=== PATIENT | male | born 1980 | race Caucasian/White ===

== ENCOUNTER 2023-08-24 15:44 | Inpatient (IN) | payer OTHER ==
[~2023-08-24 15:44] MED LIST: Iopamidol 370 76% 100 ML VIAL ONE
[2023-08-24 16:32] LABS: #Basophils 0.1 10x3/uL (0.0-0.2); #Monocytes 0.6 10x3/uL (0.0-1.1); #Neutrophils 15.2 10x3/uL (1.5-8.4); %Basophils 0.4 % (0.0-2.0); %Eosinophils 0.2 % (0.0-6.0); %Lymphocytes 5.3 % (18.0-47.0); %Monocytes 3.6 % (0.0-10.0); Hematocrit 43.2 % (38.8-50.0); Hemoglobin 13.8 g/dL (13.5-17.5); Mean Corpuscular HGB CONC 31.9 g/dL (32.0-36.0); Mean Corpuscular Hemoglobin 29.6 pg (27.0-33.0); Mean Corpuscular Volume 92.5 fl (81.2-95.1); Mean Platelet Volume 10.3 fl (7.4-10.4); Platelet Count 305 10x3/uL (150-450); RBC Distribution Width 13.3 % (11.5-14.5); Red Blood Cell (RBC) Count 4.67 10x6/uL (4.32-5.72); White Blood Cell (WBC) Count 16.9 10x3/uL (3.5-10.5)
[2023-08-24 16:38] LABS: Bilirubin Neg (Negative); Blood, Urine Negative (Negative); Clarity Clear (Clear); Glucose, Urine (Dipstick) 250 mg/dL (Negative); Ketone, Urine Negative (Negative); Leukocyte Negative (Negative); Nitrite Negative (Negative); Protein, Urine (Dipstick) 15 mg/dl (Neg-Trace); Urobilinogen Normal mg/dL (Less than 2)
[2023-08-24] MEDS ORDERED: Rocuronium Bromide 10 MG/ML (10ML VIAL) ONE (16:44)
[2023-08-24] MEDS ORDERED: KETAMINE 100 MG/ML (5ML VIAL) ONE (16:44)
[2023-08-24 16:46] LABS: Amphetamine Not Detected (NotDetected); Barbiturates Screen Not Detected (NotDetected); Benzodiazepine Screen Not Detected (NotDetected); Cocaine Metabolite Screen Not Detected (NotDetected); Methadone Not Detected (NotDetected); Methamphetamine Not Detected (NotDetected); Opiate Screen Not Detected (NotDetected); Oxycodone Screen Not Detected (NotDetected); Phencyclidine (PCP) Not Detected (NotDetected); THC/Cannabinoid Screen Not Detected (NotDetected); Tricyclic Screen Detected (NotDetected)
[2023-08-24 16:49] LABS: ALT (SGPT) 25 U/L (8-55); AST (SGOT) 22 U/L (5-34); Alkaline Phosphatase 64 U/L (40-110); Anion Gap 13 mmol/L (10-20); BUN (Urea Nitrogen) 15 mg/dL (8.9-20.6); Bilirubin, Total 0.3 mg/dL (0.2-1.2); CK (CPK) 168 U/L (30-200); Calc. Creatinine Clearance 0 mL/min (70-130); Calcium 8.5 mg/dL (7.8-10.44); Carbon Dioxide 29 mmol/L (22-29); Chloride 97 mmol/L (98-107); Estimated GFR 92; Globulin 2.6 g/dL (2.4-3.5); Glucose 282 mg/dL (70-105); Potassium 5.4 mmol/L (3.5-5.1); Protein, Total 6.6 g/dL (6.0-8.3); Sodium 134 mmol/L (136-145)
[2023-08-24 16:50] LABS: Acetaminophen Less than 10 mcg/mL (10.0-30.0); Alcohol Less than 10.0 mg/dL (Less than 10); Lipase 10 U/L (8-78); Salicylate Less than 8.0 mg/dL (15.0-30.0)
[2023-08-24] MEDS ORDERED: FENTANYL 2,000MCG/100-0.9%NACL 100 ML ONE (16:53)
[2023-08-24 16:56] LABS: Troponin I 0.011 ng/mL (< 0.028)
[2023-08-24 17:07] LABS: SARS-CoV-2 NAA Rapid Test Not Detected (NotDetected)
[2023-08-24] MEDS ORDERED: Vancomycin 1 GM VIAL ONE (17:18)
[2023-08-24] MEDS ORDERED: LevoFLOXacin 750 mg/D5W 150 ml Premix Bag ONE (17:19)
[2023-08-24] MEDS ORDERED: Cefepime 2 GM VIAL ONE (17:19)
[2023-08-24 17:23] LABS: CAUTI Indications for Culture Alt mental st,lethar; RBC/HPF 0-3 HPF (0-3); Squamous Epithelial 0-3 HPF (0-3); WBC/HPF 0-3 HPF (0-3)
[2023-08-24 17:24] LABS: Bacteria/HPF 1+ HPF (None Seen)
[2023-08-24 17:25] LABS: Urine Culture Reflex No No
[2023-08-24 17:34] LABS: Actual Bicarbonate (HCO3a) 27.5 mEq/L (22-28); Analyzer IN Cardio CS ER; Base Excess (BEa) -2.1 mEq/L (-2.0 to +3.0); CO2 Tension 69.8 mmHg (35.0-45.0); Calcium, Ionized (arterial) 1.18 mmol/L (1.12-1.30); Carboxyhemoglobin (COHb) 4.8 gm% (0.0-3.0); Hematocrit-ABG 42 % (42.0-52.0); Hemoglobin (Hb) 14.4 g/dL (14.0-18.0); O2 Tension (PaO2), arterial 75.2 mmHg (80.0-100.0); Potassium - ABG Lab 5.03 mmol/L (3.70-5.30); Puncture Site RRA; pH, Arterial 7.213 (7.35-7.45)
[2023-08-24] MEDS ORDERED: Dexamethasone 10 MG/ML VIAL ONE (17:34)
[2023-08-24] MEDS ORDERED: Magnesium 2 GM/50 ML BAG (IN WATER) ONE (17:35)
[2023-08-24] MEDS ORDERED: Ipratropium Bromide 2.5 ml Neb ONE (17:53)
[2023-08-24] MEDS ORDERED: Vecuronium 10 MG VIAL ONE (17:56)
[2023-08-24] MEDS ORDERED: Electrolyte Replacement Protocol 1 EACH IVPB ONE (18:02)
[2023-08-24] MEDS ORDERED: Ipratropium/Albuterol 3 ML NEB ONE (18:02)
[2023-08-24] MEDS ORDERED: Dextrose 50% Abboject 50 ML SYRINGE SLOW IVP PRN (18:26)
[2023-08-24] MEDS ORDERED: Dextrose 5% in Water 1,000 ML IV PRN (18:26)
[2023-08-24] MEDS ORDERED: Glucagon 1 MG/ML KIT IM PRN (18:26)
[2023-08-24] MEDS: Ipratropium/Albuterol 3 ML NEB NEB SCH (19:00)
[2023-08-24] MEDS ORDERED: Propofol 1,000 MG/100 ML VIAL IV ONE (19:23)
[2023-08-24 19:36] LABS: Actual Bicarbonate (HCO3a) 30.6 mEq/L (22-28); Analyzer IN Cardio CS ER; Base Excess (BEa) 0.9 mEq/L (-2.0 to +3.0); CO2 Tension 73.8 mmHg (35.0-45.0); Calcium, Ionized (arterial) 1.09 mmol/L (1.12-1.30); Carboxyhemoglobin (COHb) 2.8 gm% (0.0-3.0); Critical Notified By: CP.PH; Hematocrit-ABG 43 % (42.0-52.0); Hemoglobin (Hb) 14.6 g/dL (14.0-18.0); O2 Tension (PaO2), arterial 60.9 mmHg (80.0-100.0); Potassium - ABG Lab 5.54 mmol/L (3.70-5.30); Puncture Site RBA; RapidComm Collect By CP.PH; pH, Arterial 7.236 (7.35-7.45)
[2023-08-24] MEDS ORDERED: Propofol BOLUS 1,000 MG/100 ML VIAL IV PRN (20:15)
[2023-08-24] MEDS ORDERED: Fentanyl BOLUS 250 ML IVPB PRN (20:15)
[2023-08-24] MEDS: Azithromycin 500 MG in Sodium Chloride 0.9% 250 ML 250 ML IVPB SCH (20:34)
[2023-08-24] MEDS: Pantoprazole 40 MG VIAL IVP SCH (20:38)
[2023-08-24] MEDS: HumaLOG 300 UNITS/3 ML VIAL SC PRN (20:41)
[2023-08-24] MEDS ORDERED: Vancomycin HCl 500 MG in Sodium Chloride 0.9% 100 ML IVPB SCH (20:45)
[2023-08-24 21:38] LABS: Legionella Urinary Ag Negative (Negative); Strep pneumo Urine Ag NEGATIVE (NEGATIVE)
[2023-08-24] MEDS: Rocuronium Bromide 10 MG/ML (10ML VIAL) IVP SCH (23:03)
[2023-08-24] MEDS ORDERED: NOREPINEPHRINE 8 MG/250 ML-D5W 250 ML ONE (23:03)
[2023-08-24] MEDS ORDERED: Rocuronium Bromide 10 MG/ML (10ML VIAL) IVP SCH (23:05)
[2023-08-24 23:07] LABS: Actual Bicarbonate (HCO3a) 23.6 mEq/L (22-28); Analyzer IN Cardio CS ICU; Base Excess (BEa) -1.6 mEq/L (-2.0 to +3.0); CO2 Tension 41.8 mmHg (35.0-45.0); Calcium, Ionized (arterial) 1.18 mmol/L (1.12-1.30); Carboxyhemoglobin (COHb) 1.3 gm% (0.0-3.0); Critical Notified By: CP.PH; Hematocrit-ABG 41 % (42.0-52.0); Hemoglobin (Hb) 13.9 g/dL (14.0-18.0); O2 Tension (PaO2), arterial 106.4 mmHg (80.0-100.0); Potassium - ABG Lab 5.17 mmol/L (3.70-5.30); Puncture Site Arterial Line; RapidComm Collect By CP.PH
[2023-08-24] MEDS ORDERED: Acetaminophen 650 MG/20.3 ML UDCUP PER TUBE PRN (23:13)
[2023-08-24] MEDS ORDERED: NOREPINEPHRINE 8 MG/250 ML-D5W 250 ML IVPB SCH (23:15)
[2023-08-25] MEDS: methylPREDNISolone Sod Succ 40 MG VIAL IVP SCH ×4 (00:03→17:10)
[2023-08-25] MEDS: HumaLOG 300 UNITS/3 ML VIAL SC PRN ×4 (00:43→16:46)
[2023-08-25] MEDS: Rocuronium Bromide 10 MG/ML (10ML VIAL) IVP SCH (01:31)
[2023-08-25] MEDS: Ipratropium/Albuterol 3 ML NEB NEB SCH ×4 (01:35→19:50)
[2023-08-25] MEDS: Vancomycin 1.5 GRAM/300 ML BAG 1.5 GM in Premix 1 BAG IVPB SCH ×3 (02:59→17:50)
[2023-08-25] MEDS: FENTANYL 2,000MCG/100-0.9%NACL 100 ML IVPB SCH ×2 (03:20→16:09)
[2023-08-25] MEDS: Propofol 1,000 MG/100 ML VIAL IV PRN ×4 (03:20→22:34)
[2023-08-25 04:25] LABS: ALT (SGPT) 22 U/L (8-55); AST (SGOT) 16 U/L (5-34); Albumin 3.7 g/dL (3.5-5.0); Alkaline Phosphatase 57 U/L (40-110); Anion Gap 16 mmol/L (10-20); BUN (Urea Nitrogen) 18 mg/dL (8.9-20.6); Bilirubin, Total 0.6 mg/dL (0.2-1.2); Calc. Creatinine Clearance 191 mL/min (70-130); Calcium 8.2 mg/dL (7.8-10.44); Carbon Dioxide 21 mmol/L (22-29); Chloride 101 mmol/L (98-107); Estimated GFR 89; Globulin 2.8 g/dL (2.4-3.5); Glucose 276 mg/dL (70-105); Potassium 4.3 mmol/L (3.5-5.1); Protein, Total 6.5 g/dL (6.0-8.3); Sodium 134 mmol/L (136-145)
[2023-08-25] MEDS: Dexmedetomidine In 0.9 % NaCl 100 ML IVPB SCH ×4 (04:29→22:35)
[2023-08-25] MEDS: Cefepime 2 GM in Sodium Chloride 0.9% 100 ML IVPB SCH ×2 (06:30→16:04)
[2023-08-25] MEDS ORDERED: Rocuronium Bromide 10 MG/ML (10ML VIAL) ONE (07:19)
[2023-08-25] MEDS ORDERED: Rocuronium Bromide 10 MG/ML (10ML VIAL) IVP SCH (07:30)
[2023-08-25 09:42] LABS: #Monocytes 0.4 10x3/uL (0.0-1.1); #Neutrophils 14.1 10x3/uL (1.5-8.4); %Basophils 0.1 % (0.0-2.0); %Lymphocytes 5.3 % (18.0-47.0); %Monocytes 2.3 % (0.0-10.0); %Neutrophils 91.9 % (40.0-75.0); Hematocrit 40.5 % (38.8-50.0); Hemoglobin 13.3 g/dL (13.5-17.5); Mean Corpuscular HGB CONC 32.8 g/dL (32.0-36.0); Mean Corpuscular Hemoglobin 29.3 pg (27.0-33.0); Mean Corpuscular Volume 89.2 fl (81.2-95.1); Mean Platelet Volume 10.4 fl (7.4-10.4); Platelet Count 269 10x3/uL (150-450); RBC Distribution Width 13.3 % (11.5-14.5); Red Blood Cell (RBC) Count 4.54 10x6/uL (4.32-5.72); White Blood Cell (WBC) Count 15.4 10x3/uL (3.5-10.5)
[2023-08-25 12:31] LABS: Hemoglobin A1c 7.1 % (4.0-6.0)
[2023-08-25 17:27] LABS: Vancomycin, Trough 13.4 ug/mL
[2023-08-25] MEDS: Azithromycin 500 MG in Sodium Chloride 0.9% 250 ML 250 ML IVPB SCH (22:16)
[2023-08-25] MEDS: Pantoprazole 40 MG VIAL IVP SCH (22:16)
[2023-08-26] MEDS: HumaLOG 300 UNITS/3 ML VIAL SC PRN ×3 (00:42→17:21)
[2023-08-26] MEDS: methylPREDNISolone Sod Succ 40 MG VIAL IVP SCH ×4 (00:48→20:36)
[2023-08-26] MEDS: Ipratropium/Albuterol 3 ML NEB NEB SCH ×4 (01:45→19:29)
[2023-08-26] MEDS: Vancomycin 1.5 GRAM/300 ML BAG 1.5 GM in Premix 1 BAG IVPB SCH ×3 (02:38→18:19)
[2023-08-26 03:59] LABS: #Neutrophils 14.5 10x3/uL (1.5-8.4); %Basophils 0.1 % (0.0-2.0); %Lymphocytes 6.8 % (18.0-47.0); %Monocytes 6.1 % (0.0-10.0); %Neutrophils 86.5 % (40.0-75.0); Hematocrit 40.9 % (38.8-50.0); Hemoglobin 13.6 g/dL (13.5-17.5); Mean Corpuscular HGB CONC 33.3 g/dL (32.0-36.0); Mean Corpuscular Hemoglobin 29.9 pg (27.0-33.0); Mean Corpuscular Volume 89.9 fl (81.2-95.1); Platelet Count 297 10x3/uL (150-450); RBC Distribution Width 13.5 % (11.5-14.5); Red Blood Cell (RBC) Count 4.55 10x6/uL (4.32-5.72); White Blood Cell (WBC) Count 16.8 10x3/uL (3.5-10.5)
[2023-08-26 04:00] LABS: Anion Gap 16 mmol/L (10-20); BUN (Urea Nitrogen) 21 mg/dL (8.9-20.6); Calc. Creatinine Clearance 236 mL/min (70-130); Calcium 8.3 mg/dL (7.8-10.44); Carbon Dioxide 21 mmol/L (22-29); Chloride 100 mmol/L (98-107); Estimated GFR 110; Glucose 304 mg/dL (70-105); Potassium 4.5 mmol/L (3.5-5.1); Sodium 132 mmol/L (136-145)
[2023-08-26] MEDS: Dexmedetomidine In 0.9 % NaCl 100 ML IVPB SCH ×4 (04:18→21:15)
[2023-08-26] MEDS: Propofol 1,000 MG/100 ML VIAL IV PRN ×8 (04:20→23:59)
[2023-08-26] MEDS: Cefepime 2 GM in Sodium Chloride 0.9% 100 ML IVPB SCH ×2 (05:04→17:12)
[2023-08-26] MEDS: FENTANYL 2,000MCG/100-0.9%NACL 100 ML IVPB SCH ×2 (07:05→21:28)
[2023-08-26 09:39] LABS: Vancomycin, Trough 15.1 ug/mL
[2023-08-26] MEDS ORDERED: Lantus 1000 UNITS/10 ML VIAL SC SCH (10:15)
[2023-08-26] MEDS ORDERED: Furosemide 40 MG/4 ML VIAL SLOW IVP SCH (11:00)
[2023-08-26] MEDS: Furosemide 40 MG/4 ML VIAL SLOW IVP SCH (13:50)
[2023-08-26] MEDS: Pantoprazole 40 MG VIAL IVP SCH (20:09)
[2023-08-26] MEDS: Azithromycin 500 MG in Sodium Chloride 0.9% 250 ML 250 ML IVPB SCH (20:10)
[2023-08-26] MEDS: Lantus 1000 UNITS/10 ML VIAL SC SCH (20:14)
[2023-08-27] MEDS: HumaLOG 300 UNITS/3 ML VIAL SC PRN ×2 (00:45→06:20)
[2023-08-27] MEDS: Ipratropium/Albuterol 3 ML NEB NEB SCH ×4 (00:51→19:00)
[2023-08-27] MEDS: Vancomycin 1.5 GRAM/300 ML BAG 1.5 GM in Premix 1 BAG IVPB SCH ×3 (02:21→19:43)
[2023-08-27] MEDS: Dexmedetomidine In 0.9 % NaCl 100 ML IVPB SCH ×6 (02:34→23:52)
[2023-08-27] MEDS: Propofol 1,000 MG/100 ML VIAL IV PRN ×5 (03:30→13:24)
[2023-08-27 04:49] LABS: ALV-art Gradient 168.525 mmHg (0-20); Actual Bicarbonate (HCO3a) 26.1 mEq/L (22-28); Analyzer IN Cardio CS ICU; Base Excess (BEa) 1.8 mEq/L (-2.0 to +3.0); CO2 Tension 39.9 mmHg (35.0-45.0); Calcium, Ionized (arterial) 1.12 mmol/L (1.12-1.30); Carboxyhemoglobin (COHb) 0.6 gm% (0.0-3.0); Critical Notified By: Udy, RRT; Hematocrit-ABG 43 % (42.0-52.0); Hemoglobin (Hb) 14.5 g/dL (14.0-18.0); O2 Tension (PaO2), arterial 66.8 mmHg (80.0-100.0); Potassium - ABG Lab 4.17 mmol/L (3.70-5.30); Puncture Site RRA; RapidComm Collect By Udy, RRT; pH, Arterial 7.433 (7.35-7.45)
[2023-08-27 04:51] LABS: #Monocytes 0.9 10x3/uL (0.0-1.1); #Neutrophils 14.1 10x3/uL (1.5-8.4); %Basophils 0.1 % (0.0-2.0); %Lymphocytes 7.2 % (18.0-47.0); %Monocytes 5.6 % (0.0-10.0); %Neutrophils 86.7 % (40.0-75.0); Hematocrit 42.2 % (38.8-50.0); Hemoglobin 14.1 g/dL (13.5-17.5); Mean Corpuscular HGB CONC 33.4 g/dL (32.0-36.0); Mean Corpuscular Hemoglobin 29.5 pg (27.0-33.0); Mean Corpuscular Volume 88.3 fl (81.2-95.1); Mean Platelet Volume 10.4 fl (7.4-10.4); Platelet Count 311 10x3/uL (150-450); RBC Distribution Width 13.3 % (11.5-14.5); Red Blood Cell (RBC) Count 4.78 10x6/uL (4.32-5.72); White Blood Cell (WBC) Count 16.3 10x3/uL (3.5-10.5)
[2023-08-27 04:52] LABS: Anion Gap 15 mmol/L (10-20); BUN (Urea Nitrogen) 20 mg/dL (8.9-20.6); Calc. Creatinine Clearance 251 mL/min (70-130); Calcium 8.2 mg/dL (7.8-10.44); Carbon Dioxide 23 mmol/L (22-29); Chloride 99 mmol/L (98-107); Estimated GFR 112; Glucose 269 mg/dL (70-105); Potassium 4.2 mmol/L (3.5-5.1); Sodium 133 mmol/L (136-145)
[2023-08-27] MEDS: Cefepime 2 GM in Sodium Chloride 0.9% 100 ML IVPB SCH ×2 (05:28→17:10)
[2023-08-27] MEDS: Furosemide 40 MG/4 ML VIAL SLOW IVP SCH ×2 (08:44→22:42)
[2023-08-27] MEDS: methylPREDNISolone Sod Succ 40 MG VIAL IVP SCH ×2 (08:44→19:44)
[2023-08-27] MEDS: Lantus 1000 UNITS/10 ML VIAL SC SCH ×2 (08:45→19:46)
[2023-08-27] MEDS ORDERED: Lantus 1000 UNITS/10 ML VIAL SC SCH (09:00)
[2023-08-27] MEDS ORDERED: SODIUM CHLORIDE 0.9% IV SCH (11:30)
[2023-08-27] MEDS ORDERED: FENTANYL IV SCH (11:30)
[2023-08-27] MEDS: HumaLOG 300 UNITS/3 ML VIAL SC SCH ×2 (12:36→18:25)
[2023-08-27] MEDS ORDERED: Haloperidol Lactate 5 MG/ML VIAL IM SCH (18:00)
[2023-08-27] MEDS: Azithromycin 500 MG in Sodium Chloride 0.9% 250 ML 250 ML IVPB SCH (20:23)
[2023-08-27] MEDS: Pantoprazole 40 MG VIAL IVP SCH (22:42)
[2023-08-28] MEDS: HumaLOG 300 UNITS/3 ML VIAL SC PRN (00:13)
[2023-08-28] MEDS: Ipratropium/Albuterol 3 ML NEB NEB SCH ×4 (01:34→19:40)
[2023-08-28] MEDS: Vancomycin 1.5 GRAM/300 ML BAG 1.5 GM in Premix 1 BAG IVPB SCH ×3 (02:44→18:06)
[2023-08-28] MEDS: Dexmedetomidine In 0.9 % NaCl 100 ML IVPB SCH ×2 (02:46→05:53)
[2023-08-28 04:22] LABS: #Monocytes 1.4 10x3/uL (0.0-1.1); #Neutrophils 14.3 10x3/uL (1.5-8.4); %Basophils 0.1 % (0.0-2.0); %Eosinophils 0.1 % (0.0-6.0); %Lymphocytes 5.6 % (18.0-47.0); %Monocytes 8.1 % (0.0-10.0); %Neutrophils 85.7 % (40.0-75.0); Hematocrit 47.2 % (38.8-50.0); Hemoglobin 15.5 g/dL (13.5-17.5); Mean Corpuscular HGB CONC 32.8 g/dL (32.0-36.0); Mean Corpuscular Hemoglobin 29.7 pg (27.0-33.0); Mean Corpuscular Volume 90.4 fl (81.2-95.1); Mean Platelet Volume 10.2 fl (7.4-10.4); Platelet Count 267 10x3/uL (150-450); RBC Distribution Width 13.2 % (11.5-14.5); Red Blood Cell (RBC) Count 5.22 10x6/uL (4.32-5.72); White Blood Cell (WBC) Count 16.7 10x3/uL (3.5-10.5)
[2023-08-28 04:29] LABS: Anion Gap 18 mmol/L (10-20); BUN (Urea Nitrogen) 24 mg/dL (8.9-20.6); Calc. Creatinine Clearance 245 mL/min (70-130); Calcium 8.7 mg/dL (7.8-10.44); Carbon Dioxide 21 mmol/L (22-29); Chloride 96 mmol/L (98-107); Estimated GFR 113; Glucose 187 mg/dL (70-105); Sodium 130 mmol/L (136-145)
[2023-08-28 04:33] LABS: Potassium 4.8 mmol/L (3.5-5.1)
[2023-08-28] MEDS: Cefepime 2 GM in Sodium Chloride 0.9% 100 ML IVPB SCH ×2 (05:53→16:56)
[2023-08-28] MEDS: HumaLOG 300 UNITS/3 ML VIAL SC SCH ×3 (08:21→16:56)
[2023-08-28] MEDS: Furosemide 40 MG/4 ML VIAL SLOW IVP SCH (08:52)
[2023-08-28] MEDS: methylPREDNISolone Sod Succ 40 MG VIAL IVP SCH (08:52)
[2023-08-28] MEDS: Lantus 1000 UNITS/10 ML VIAL SC SCH ×2 (08:52→22:52)
[2023-08-28] MEDS ORDERED: Polyethylene Glycol 3350 17 GM Packet PO PRN (09:28)
[2023-08-28] MEDS ORDERED: Baclofen 10 MG TAB PO PRN (09:28)
[2023-08-28] MEDS ORDERED: hydrOXYzine 25 MG TAB PO PRN (09:28)
[2023-08-28] MEDS ORDERED: Sodium Chloride 0.9% 500 ML IV SCH (10:15)
[2023-08-28] MEDS: Nicotine 14 MG PATCH TD SCH (11:01)
[2023-08-28] MEDS ORDERED: ALPRAZolam 1 MG TAB PO PRN (14:25)
[2023-08-28] MEDS: Gabapentin 300 MG CAP PO SCH ×2 (14:38→22:48)
[2023-08-28] MEDS ORDERED: ALPRAZolam 0.5 MG TAB PO PRN (14:45)
[2023-08-28] MEDS ORDERED: QUEtiapine 100 MG TAB PO SCH (21:00)
[2023-08-28] MEDS: Ziprasidone 20 MG CAP PO SCH (22:46)
[2023-08-28] MEDS: lamoTRIgine 25 MG TAB PO SCH (22:47)
[2023-08-28] MEDS: Azithromycin 500 MG in Sodium Chloride 0.9% 250 ML 250 ML IVPB SCH (22:51)
[2023-08-28] MEDS: Pantoprazole 40 MG VIAL IVP SCH (23:30)
[2023-08-29] MEDS: Ipratropium/Albuterol 3 ML NEB NEB SCH ×3 (01:15→13:30)
[2023-08-29] MEDS: Vancomycin 1.5 GRAM/300 ML BAG 1.5 GM in Premix 1 BAG IVPB SCH ×2 (02:34→11:16)
[2023-08-29 03:46] LABS: #Eosinphils 0.2 10x3/uL (0.0-0.5); #Monocytes 1.4 10x3/uL (0.0-1.1); %Basophils 0.2 % (0.0-2.0); %Lymphocytes 11.9 % (18.0-47.0); %Monocytes 8.5 % (0.0-10.0); Hematocrit 44.2 % (38.8-50.0); Hemoglobin 14.8 g/dL (13.5-17.5); Mean Corpuscular HGB CONC 33.5 g/dL (32.0-36.0); Mean Corpuscular Hemoglobin 29.2 pg (27.0-33.0); Mean Corpuscular Volume 87.4 fl (81.2-95.1); Mean Platelet Volume 10.3 fl (7.4-10.4); Platelet Count 297 10x3/uL (150-450); RBC Distribution Width 13.2 % (11.5-14.5); Red Blood Cell (RBC) Count 5.06 10x6/uL (4.32-5.72); White Blood Cell (WBC) Count 16.6 10x3/uL (3.5-10.5)
[2023-08-29 03:52] LABS: Anion Gap 15 mmol/L (10-20); BUN (Urea Nitrogen) 26 mg/dL (8.9-20.6); Calc. Creatinine Clearance 251 mL/min (70-130); Calcium 8.4 mg/dL (7.8-10.44); Carbon Dioxide 21 mmol/L (22-29); Chloride 99 mmol/L (98-107); Estimated GFR 113; Glucose 185 mg/dL (70-105); Potassium 3.4 mmol/L (3.5-5.1); Sodium 132 mmol/L (136-145)
[2023-08-29] MEDS: Cefepime 2 GM in Sodium Chloride 0.9% 100 ML IVPB SCH (05:46)
[2023-08-29] MEDS ORDERED: Metoprolol Tartrate 50 MG TAB PO SCH (09:30)
[2023-08-29] MEDS ORDERED: Potassium Chloride 20 MEQ TAB PO SCH (09:30)
[2023-08-29 09:42] LABS: Vancomycin, Trough 20.1 ug/mL
[2023-08-29] MEDS: HumaLOG 300 UNITS/3 ML VIAL SC SCH (11:13)
[2023-08-29] MEDS: Gabapentin 300 MG CAP PO SCH (11:14)
[2023-08-29] MEDS: Lantus 1000 UNITS/10 ML VIAL SC SCH (11:14)
[2023-08-29] MEDS: Nicotine 14 MG PATCH TD SCH (11:15)
[2023-08-29] MEDS: lamoTRIgine 25 MG TAB PO SCH (11:55)
[2023-08-29] MEDS: Ziprasidone 20 MG CAP PO SCH (11:56)
[2023-08-29] MEDS ORDERED: Magnesium Oxide 400 MG TAB PO SCH (12:00)
[2023-08-29 12:31] VITALS: BMI 37.3
[2023-08-29 12:39] VITALS: BP 111/74; TEMP 98.2
[2023-08-29] MEDS ORDERED: VANCOMYCIN 1.25 GM/250 ML BAG 1.25 GM in Premix 1 BAG IVPB SCH (18:00)
== END 2023-08-29 16:35 | disposition home or self-care (01) | DRG 871 ==
LOC: SUATTDRO 15:44 → CSHERS 15:44 → CSHIMCU 16:20 → CSHTELE 08-28 21:58
PROVIDERS: ADMIT Internal Medicine; ATTEND Internal Medicine
PROC: 0BH17EZ Insertion of Endotracheal Airway into Trachea, Via Natural or Artificial Opening (ICD-10-PCS; principal; 2023-08-24)
PROC: 03HB33Z Insertion of Infusion Device into Right Radial Artery, Percutaneous Approach (ICD-10-PCS; 2023-08-24)
PROC: 5A1945Z Respiratory Ventilation, 24-96 Consecutive Hours (ICD-10-PCS; 2023-08-24)
PROC: 0D9670Z Drainage of Stomach with Drainage Device, Via Natural or Artificial Opening (ICD-10-PCS; 2023-08-24)
PROC: 5A09357 Assistance with Respiratory Ventilation, Less than 24 Consecutive Hours, Continuous Positive Airway Pressure (ICD-10-PCS; 2023-08-24)
PROC: 5A09357 Assistance with Respiratory Ventilation, Less than 24 Consecutive Hours, Continuous Positive Airway Pressure (ICD-10-PCS; 2023-08-24)
PROC: 4A133R1 Monitoring of Arterial Saturation, Peripheral, Percutaneous Approach (ICD-10-PCS; 2023-08-24)
PROC: 3E033XZ Introduction of Vasopressor into Peripheral Vein, Percutaneous Approach (ICD-10-PCS; 2023-08-24)
PROC: 3E03329 Introduction of Other Anti-infective into Peripheral Vein, Percutaneous Approach (ICD-10-PCS; 2023-08-24)
PROC: 0B9D8ZX Drainage of Right Middle Lung Lobe, Via Natural or Artificial Opening Endoscopic, Diagnostic (ICD-10-PCS; 2023-08-25)
DX: A41.9 Sepsis, unspecified organism (principal); G93.41 Metabolic encephalopathy; J18.9 Pneumonia, unspecified organism; J96.01 Acute respiratory failure with hypoxia; F41.9 Anxiety disorder, unspecified; E66.9 Obesity, unspecified; E87.5 Hyperkalemia; E11.65 Type 2 diabetes mellitus with hyperglycemia; R45.1 Restlessness and agitation; Z78.1 Physical restraint status; Z11.52 Encounter for screening for COVID-19; Z68.37 Body mass index [BMI] 37.0-37.9, adult
CPT/HCPCS: 31500; 36415; 36416; 36600; 51702; 70450; 71045; 71275; 80048; 80053; 80202; 80306; 80307; 81001; 82010; 82140; 82550; 82805; 83036; 83605; 83690; 83880; 84484; 85025; 87040; 87070; 87205; 87449; 87633; 87798; 87899; 93005; 93010; 93306; 94002; 94003; 94640; 94760; 94762; 96365; 96366; 96367; 96368; 96375; C9113; J0456; J0692; J1100; J1630; J1650; J1815; J1940; J1956; J2704; J2920; J3010; J3370; J3475; J3490; J7030; J7050; J7611; J7620; Q9967